=== PATIENT | female | born 1975 | race Hispanic/Latino ===

== ENCOUNTER 2024-08-21 06:03 | Emergency (ER) | payer SELFPAY ==
[~2024-08-21] VITALS: Ht 152.4 cm; Wt 70.3 kg
--- NOTE | 2024-08-21 06:28 | EKG ---
[facility] Test Date: 2024-08-21 Test Time: 06:05:50 Pat Name: NOELLE NESBITT Department: [facility] Room: Gender: F Medical Biller: [id number] : 1975 Requested By: JOSHUA BLANKENSHIP Order Number: [id number] Reading MD: Hector Castano Measurements Intervals [place] Rate: 73 P: 55 NH: 143 QRS: 31 QRSD: 96 T: 16 QT: 370 QTc: 408 Interpretive Statements Sinus rhythm Low voltage, precordial leads No previous ECG available for comparison Electronically Signed On 08-22-2024 13:39:44 CDT by Hector Castano Please click the below link to view image of tracing.
[2024-08-21 06:36] LABS: BASOPHILS # (AUTO) 0.03 K/uL (0.00-0.20); BASOPHILS % (AUTO) 0.5 % (0.0-5.0); HEMATOCRIT 35.1 % (36-48); IMMATURE GRANULOCYTE ABSOLUTE 0.02 K/uL (0-1); LYMPHOCYTES # (AUTO) 0.8 K/uL (1.0-4.8); LYMPHOCYTES % (AUTO) 14.4 % (21.0-51.0); MEAN CORPUSCULAR HEMOGLOBIN 21.1 pg (27.0-33.0); MEAN CORPUSCULAR HGB CONC 30.5 g/dL (32.0-36.0); MEAN CORPUSCULAR VOLUME 69.2 fL (79-99); MONOCYTES # (AUTO) 0.3 K/uL (0.1-1.0); MONOCYTES % (AUTO) 6.1 % (3.0-13.0); NEUTROPHILS # (AUTO) 4.4 K/uL (1.8-7.7); NEUTROPHILS % (AUTO) 78.6 % (40.0-77.0); PLATELET COUNT (AUTO) 223 K/uL (130-400); RED BLOOD CELL COUNT(AUTO) 5.07 MIL/uL (4.00-5.50); RED CELL DISTRIBUTION WIDTH 17.5 % (11.0-15.5); WHITE BLOOD COUNT (AUTO) 5.5 K/uL (4.8-10.8)
[2024-08-21 06:51] LABS: APPEARANCE,URINE SL CLOUDY (CLEAR); BILIRUBIN,URINE MODERATE mg/dL (NEGATIVE); COLOR,URINE YELLOW (YELLOW); GLUCOSE, URINE (UA) NEGATIVE (NEGATIVE); KETONES,URINE 15 mg/dL (NEGATIVE); LEUKOCYTE ESTERASE ,URINE NEGATIVE Leu/uL (NEGATIVE); NITRATE,URINE NEGATIVE (NEGATIVE); OCCULT BLOOD,URINE TRACE-INTACT (NEGATIVE); PROTEIN,URINE >=300 mg/dL (NEGATIVE)
--- NOTE | 2024-08-21 06:52 | ERN ---
ED Note History of Present Illness Stated Complaint: SHORTNESS OF BREATH Chief Complaint: Shortness of Breath Time Seen by MD: 06:14 Dictation: This is a 48-year-old female who is the daughter of a patient visiting her mother who just sustained a cardiac arrest. She indicated that she has been sick for the past 4 days with cough congestion and shortness of breath and she was about to step out of the hospital and go home to take a breathing treatment. Away she felt very faint and weak nurses were able to get her registered a check her in for evaluation She reports cough with scant amounts of sputum and severe congestion. Temperature 100.2 pulse 76 respirations 26 blood pressure 128/71 with a pulse oximetry of 100% on room air Allergies: Coded Allergies: Penicillins (Unverified Allergy, Severe, 08/21/24) acetaminophen (Unverified Allergy, Severe, 08/21/24) pamabrom (Unverified Allergy, Severe, 08/21/24) Past Medical History Past Medical History: Asthma Surgical History: None Family History: Negative Social History: Negative RN Note Reviewed/Agreed w/PFSH: Yes Review of System Dictation Constitutional: Negative for fever,chills, and weight loss Eyes: Negative for injury, pain,redness, and discharge ENT: Negative for injury,pain or swelling Cardiovascular: Negative for chest pain, palpitations, and edema Respiratory: Positive for shortness of breath, cough, and wheezing, Abdomen/GI: Negative for abdominal pain, nausea, vomiting, diarrhea, and constipation Back: Negative for injury and pain : Negative for injury, bleeding and discharge MS/Extremity: Negative for injury and deformity Skin: Negative for rash, and discoloration Neuro: Negative for headache, weakness, numbness, tingling, and seizure Psych: Negative for suicide ideation, homicidal ideation, and hallucinations Initial Vital Sign VS Vital Signs Date Time Temp Pulse Resp B/P (MAP) Pulse Ox O2 Delivery O2 Flow Rate FiO2 08/21/24 06:13 100.2 76 26 128/71 100 N/C High Flow System 08/21/24 06:16 0 21 Physical Exam Dictation General: awake, alert, NAD Head/Face: Normocephalic, atraumatic Eyes: PERRL, EOMI, vision at baseline ENT: oral cavity clear, TMs clear, no signs of infection Neck: Trachea midline, supple, no nuchal rigidity Cardiovascular: RRR, normal S1/S2, No MRGs, no JVD Respiratory: Bilateral coarse rhonchi Abdomen: Soft, non-tender, non-distended, normal bowel sounds, no guarding or rebound. Skin: Warm, dry, normal turgor, no rash MS/Extremity: Pulses equal, no cyanosis, neurovascular intact, FROM Neuro: COAx4, GCS 15, strength 5/5, CN 2-12 intact, normal cerebellar exam, normal gait, Psych: Normal behavior, mood, and affect normal Extremities-trace edema without any palpable cords, Homans sign is negative Results (Laboratory/Radiology) Laboratory/Radiology Laboratory Tests Test 08/21/24 06:10 08/21/24 06:30 08/21/24 06:39 Influenza Type A Antigen Negative For Type A Influenza Type B Antigen Positive For Type B SARS-CoV-2 Antigen (Rapid) PRESUMPTIVE NEGATIVE Group A Streptococcus Rapid negative (NEGATIVE) White Blood Count 5.5 K/uL (4.8-10.8) Red Blood Count 5.07 MIL/uL (4.00-5.50) Hemoglobin 10.7 g/dL (12.0-16.0) L Hematocrit 35.1 % (36-48) L Mean Corpuscular Volume 69.2 fL (79-99) L Mean Corpuscular Hemoglobin 21.1 pg (27.0-33.0) L Mean Corpuscular Hemoglobin Concent 30.5 g/dL (32.0-36.0) L Red Cell Distribution Width 17.5 % (11.0-15.5) H Platelet Count 223 K/uL (130-400) Mean Platelet Volume 11.7 fL (7.5-10.5) H Immature Granulocyte % (Auto) 0.4 % (0-1) Neutrophils (%) (Auto) 78.6 % (40.0-77.0) H Lymphocytes (%) (Auto) 14.4 % (21.0-51.0) L Monocytes (%) (Auto) 6.1 % (3.0-13.0) Eosinophils (%) (Auto) 0.0 % (0.0-8.0) Basophils (%) (Auto) 0.5 % (0.0-5.0) Neutrophils # (Auto) 4.4 K/uL (1.8-7.7) Lymphocytes # (Auto) 0.8 K/uL (1.0-4.8) L Monocytes # (Auto) 0.3 K/uL (0.1-1.0) Eosinophils # (Auto) 0.00 K/uL (0.00-0.70) Basophils # (Auto) 0.03 K/uL (0.00-0.20) Absolute Immature Granulocyte (auto 0.02 K/uL (0-1) Nucleated Red Blood Cells 0.0 % (0.0-0.19) Red Blood Cell Morphology See comments Sodium Level 132 mmol/L (136-145) L Potassium Level 2.9 mmol/L (3.5-5.1) *L Chloride Level 98 mmol/L (101-111) L Carbon Dioxide Level 25 mmol/L (21-32) Blood Urea Nitrogen 10 mg/dL (7-18) Creatinine 0.9 mg/dL (0.5-1.0) Glomerular Filtration Rate Calc 80 mL/min (>90) Random Glucose 113 mg/dL (70-105) H Total Calcium 9.1 mg/dL (8.5-10.1) Magnesium Level 1.70 mg/dL (1.80-2.40) L Total Creatine Kinase 75 U/L (21-232) Troponin I High Sensitivity 17.0 ng/L (4-50) Human Chorionic Gonadotropin, Quant 1 mIU/mL (0-5) Urine Color YELLOW (YELLOW) Urine Appearance SL CLOUDY (CLEAR) Urine pH 6.0 (5.0-8.0) Urine Specific [place] 1.039 (1.001-1.031) Urine Protein >=300 mg/dL (NEGATIVE) H Urine Glucose (UA) NEGATIVE mg/dL (NEGATIVE) Urine Ketones 15 mg/dL (NEGATIVE) H Urine Occult Blood TRACE-INTACT (NEGATIVE) H Urine Nitrate NEGATIVE (NEGATIVE) Urine Bilirubin MODERATE mg/dL (NEGATIVE) H Urine Urobilinogen 1.0 mg/dL (0.2-1.0) Urine Leukocyte Esterase NEGATIVE Olga Lidia/uL Urine RBC 2-5 /HPF (0-1) H Urine WBC 2-5 /HPF (0-1) H Urine Squamous Epithelial Cells Few /HPF (0-2) Urine Bacteria Few /HPF (None Seen) Labs Reviewed?: Yes EKG Comment: Twelve lead EKG done on 08/21/2024 at 6:05 a.m. showed a heart rate of 73, ID interval 143, QRS 96, QT/QTC 370/408. Impression normal sinus rhythm with nonspecific changes slightly low voltage in the precordial leads. Interpreted by ER MD Dr. Blankenship ED Course ED Course Orders Procedure Category Date Status Time Cardiac Panel LAB 08/21/24 Complete 06:10 Cbc With Differential LAB 08/21/24 Complete 06:10 Basic Metabolic Panel LAB 08/21/24 Complete 06:10 Hcg,Quantitative LAB 08/21/24 Complete 06:10 Urinalysis Profile LAB 08/21/24 Complete 06:10 Influenza Type A & B, LAB 08/21/24 Complete Rapid 06:10 Covid19 (Sars Antigen LAB 08/21/24 Complete Rapid) 06:10 Chest 1vw RAD 08/21/24 Taken 06:10 Rapid (Group A Strep) LAB 08/21/24 Complete 06:13 12 Lead Ekg Tracing- EKG 08/21/24 Complete Technical 06:13 Methylprednisolone PHA 08/21/24 Complete Succ 125mg (Solu-Medr 07:00 0.9% Nacl 500ml PHA 08/21/24 Complete Iv.Soln (Ns 500ml 07:00 Albuterol 0.083% PHA 08/21/24 Complete 2.5mg/3ml (Proventil 07:00 Magnesium LAB 08/21/24 Complete 07:58 Potassium Bicarb/Cit PHA 08/21/24 Complete Ac 25meq (K-Lyte Ta 08:00 Potassium Chloride PHA 08/21/24 Complete 10meq/100ml ([place] 08:00 Magnesium Oxide PHA 08/21/24 In Process (Mag-Ox) 09:30 Current Medications Medications (Trade) Dose Ordered Sig/Yudi Route PRN Reason Start Time Stop Time Status Last Admin Dose Admin Albuterol Sulfate (Proventil 0.083% 2.5mg/3ml) 2.5MG ONCE ONCE IH 08/21/24 07:00 08/21/24 07:01 DC 08/21/24 07:35 Magnesium Oxide (Mag-Ox) 400 mg ONCE ONCE PO 08/21/24 09:30 08/21/24 09:31 Methylprednisolone Sodium Succinate (Solu-medROL 125MG) 120 mg ONCE ONCE IVP 08/21/24 07:00 08/21/24 07:01 DC 08/21/24 07:01 Potassium Bicarbonate (K-Lyte Tablet Eff 25 Meq Tablet.eff) 50 meq ONCE ONCE PO 08/21/24 08:00 08/21/24 08:01 DC 08/21/24 08:11 Potassium Chloride 100 ml @ 100 mls/hr ONCE ONCE IV 08/21/24 08:00 08/21/24 09:00 DC 08/21/24 08:11 Sodium Chloride 500 ml @ 0 mls/hr ONCE ONCE IV 08/21/24 07:00 08/21/24 07:01 DC 08/21/24 07:00 Vital Signs Date Time Temp Pulse Resp B/P (MAP) Pulse Ox O2 Delivery O2 Flow Rate FiO2 08/21/24 07:35 83 08/21/24 07:17 100.0 81 16 110/66 100 Room Air* 0 21 08/21/24 06:16 100.2 75 24 125/73 99 Room Air* 0 21 08/21/24 06:13 100.2 76 26 128/71 100 N/C High Flow System We will perform diagnostic labs, imaging and administer medications according to the patient's complaint. Once the results are available, will review and personally interpreted the labs to rule out any acute life-threatening emergency the trach require immediate intervention and treatment. I will then re-evaluate the patient after treatment and diagnostic exams have return to determine whether the patient requires any further testing, can safely be discharged home or need further admission to hospital for additional treatment and evaluation. Medical Decision Making MDM MDM: Differential diagnosis: Acute bronchitis, asthma exacerbation, pneumonia PATIENT IS A 48-YEAR-OLD FEMALE COMING IN TO BE EVALUATED FOR COUGH CONGESTION AND MILD SHORTNESS OF BREATH. LABORATORY WORKUP POSITIVE FOR INFLUENZA. PATIENT WILL BE DISCHARGED WITH TAMIFLU. ELECTROLYTES WERE REPLACED. I ADVISED PATIENT APPROPRIATE FOLLOW UP WITH PCP IN 1-2 DAYS. DX & DISP Disposition: Discharge Departure Impression: Primary Impression: Influenza Condition: Stable Scripts Budesonide/Formoterol Fumarate (Symbicort 160-4.5 Mcg Inhaler) 160 Mcg-4.5 Mcg/Actuation Hfa.aer.ad 2 PUFF IH BID for 30 Days, #10.2 GM 0 Refills Prov: RODRICK LOZADA MD 08/21/24 Oseltamivir Phosphate (Tamiflu) 75 Mg Cap 1 CAP PO BID for 5 Days, #10 CAP 0 Refills Prov: RODRICK LOZADA MD 08/21/24 Additional Instructions: Patient and the caregiver have been informed of all the diagnostic tests and the imaging conducted during the today's visit to the emergency room and has verbalized understanding of the results I have personally reviewed and interpreted all diagnostic exams performed here in the ER today as well as the vital signs documented by the nursing staff. The patient is now being discharged to home and should follow up with the primary care physician or the specialist as directed by the ER staff. Follow-up with primary care provider in 1 to 2 days. Take medications as directed here in the emergency room. Okay to continue home medications unless otherwise discussed during your visit in the emergency room today. Return to your nearest emergency room if symptoms worsen or if there is no improvement. Call 911 if you need immediate assistance. Take Tylenol or Motrin [id number] as needed and if no contraindications are present. Increase oral hydration. A wound culture or urine culture was ordered here in the emergency room department please follow-up with primary care provider and advise them to get repeat ports from our facility. If you had any Misha wrap/splints that were applied here, please do not remove them until you see your primary care or specialty. Referrals: Paola RUBIN MD (PCP) Time of Disposition: 09:16 JOSHUA BLANKENSHIP MD Aug 21, 2024 06:52 RODRICK LOZADA MD Aug 21, 2024 09:17
[2024-08-21 06:59] LABS: ADD UA MICROSCOPIC YES
[2024-08-21] MEDS: 0.9% NACL 500ML IV.SOLN 500 ML IV ONE (07:00)
[2024-08-21] MEDS: Solu-medROL 125MG VIAL IVP ONE (07:01)
[2024-08-21 07:10] LABS: COVID19 (SARS ANTIGEN RAPID) PRESUMPTIVE NEGATIVE (NEGATIVE); INFLUENZA TYPE A Negative For Type A (NEGATIVE)
[2024-08-21 07:14] LABS: BACTERIA,URINE Few /HPF (None Seen); MUCUS,URINE Few LPF (None Seen); SQUAMOUS EPITHELIAL CELL,UR Few /HPF (0-2)
[2024-08-21 07:14] LABS: INFLUENZA TYPE B Positive For Type B (NEGATIVE)
[2024-08-21 07:35] VITALS: PULSE 83
[2024-08-21] MEDS: ALBUTEROL 0.083% 2.5 MG/3 ML INH IH ONE (07:35)
[2024-08-21 07:37] LABS: CREATININE 0.9 mg/dL (0.5-1.0)
[2024-08-21 07:58] LABS: POTASSIUM 2.9 mmol/L (3.5-5.1)
[2024-08-21] MEDS: PoTASSium chloRIDE 10MEQ/100ML 100 ML IV ONE (08:11)
[2024-08-21] MEDS: PoTASSium BIcarbonate/CIT AC 25 MEQ TABLET.EFF PO ONE (08:11)
[2024-08-21] MEDS ORDERED: BUDE10.2 IH (09:17)
[2024-08-21] MEDS ORDERED: OSEL75 PO (09:17)
[2024-08-21] MEDS: MAGNESIUM OXIDE 400 MG TABLET PO ONE (09:37)
[2024-08-21 10:01] VITALS: BP 114/63; PULSE 78; RESP 16; TEMP 99; O2SAT 100
--- NOTE | 2024-08-21 10:04 | NUR ---
PT STABLE NO DISTRESS, VITALS WNL PT INSRUCTED FOR D/C VERBALIZED UNDERSTANDING. PT AAOX4. IV REMOVED CATHETER INTACT.
--- NOTE | 2024-08-21 11:27 | HMCIMG ---
PORTABLE CHEST RADIOGRAPH INDICATION: cough flu like syndrome COMPARISON: None FINDINGS: district fire management officer leads overlie the field of view. Shallow inspiration. Heart size is normal. The pulmonary vascularity and bill appear normal. No abnormal pulmonary parenchymal opacity or consolidation identified. No significant pleural effusion noted. No pneumothorax detected. IMPRESSION: Shallow inspiration without radiographic evidence for any acute cardiopulmonary process.
== END 2024-08-21 10:13 | disposition home or self-care (01) ==
LOC: EDH 06:03
DX: J10.1 Influenza due to other identified influenza virus with other respiratory manifestations (principal); J45.909 Unspecified asthma, uncomplicated; Z20.822 Contact with and (suspected) exposure to COVID-19; Z79.51 Long term (current) use of inhaled steroids; Z88.0 Allergy status to penicillin
CPT/HCPCS: 99285; 96374; 71045; 96361; 87426; 82550; 83735; 84484; 80048; 84702; 85025; 87880; 87804 ×2; 81001; 36415; 93005; 94640; J2919; J7040; J3480; 99284